=== PATIENT | male | born 1995 | race Caucasian/White ===

== ENCOUNTER 2020-01-11 09:38 | Emergency (ER) | payer BC, SELFPAY ==
--- NOTE | 2020-01-11 10:01 | ED.EAR ---
HPI - Ear Problem General Chief complaint: Ear Stated complaint: ear pain Source: patient and RN notes reviewed Mode of arrival: ambulatory Limitations: no limitations History of Present Illness HPI Narrative: The patient, previously mostly healthy, presents with ear discomfort. Patient states he has half week history of decreased hearing bilaterally, more in the right. This is associated with some mild tenderness; symptoms are mild, unrelieved with OTC preparations like peroxide and syringe. No fever, URI?sinusitis, loss of taste or smell, discharge, swimming, vertigo Related Data Allergies Allergy/AdvReac Type Severity Reaction Status Date / Time No Known Allergies Allergy Verified 01/11/20 10:05 Review of Systems Review of Systems: Narrative: The patient has been informed that they may have pre-hypertension or Hypertension based on a BP reading in the department. I recommend that the patient call the primary care provider listed on their discharge instructions or a physician of their choice this week to arrange follow up for further evaluation of possible pre-hypertension or Hypertension General/Constitutional: No weight loss,fever Eyes: N0: Redness,discharge Ears/Nose/Throat: No: Epistaxis,ear discharge Respiratory: Denies: Hemoptysis Gastrointestinal: No Vomiting, Bleeding-rectal Skin: No Lumps, eruption Neurologic: No Focal Weakness,Sz Hematologic: Denies: Petechiae/Purpura Psychiatric: No: Suicida ideationl All Other Systems: Reviewed and Negative PMFSH Comments At time of signature, agree with nursing past medical, surgical, social and family history. There is no relevant family history pertinent to the presenting complaint Exam Narrative: Exam Narrative: General Appearance: Well appearing, Conjunctiva clear Ears: Bilateral ceruminosis of EACs, left TM and auditory canal normal, mild right EAC edema and [fungal? ] debris Nose: Normal nose, Nares clear Mouth/Throat: Normal appearing, Normal lips Neck: Supple, No adenopathy Respiratory: Airway patent, No respiratory distress Skin: Warm, Dry Neurological: A&O x3, CN II-X intact Psychiatric: Normal mood, Normal affect Course Vital Signs Vital signs: Vital Signs Temperature 97.8 F 01/11/20 10:06 Pulse Rate 96 01/11/20 10:06 Respiratory Rate 20 01/11/20 10:06 Blood Pressure 149/81 H 01/11/20 10:06 Pulse Oximetry 100 01/11/20 10:06 Temperature 97.8 F 01/11/20 10:06 Pulse Rate 96 01/11/20 10:06 Respiratory Rate 20 01/11/20 10:06 Blood Pressure 149/81 H 01/11/20 10:06 Pulse Oximetry 100 01/11/20 10:06 Procedures Ear Wax Removal Both Ears: Cerumenolytic Used: other (peroxide) Results: Re-examined: cerumen removed completely TM Examination: TM(s) erythematous Ear Canal Exam: atraumatic Patient Tolerated Procedure: well Complications: no problems Medical Decision Making Vital Signs Vital Signs: Vital Signs Temperature 97.8 F 01/11/20 10:06 Pulse Rate 96 01/11/20 10:06 Respiratory Rate 20 01/11/20 10:06 Blood Pressure 149/81 H 01/11/20 10:06 Pulse Oximetry 100 01/11/20 10:06 Temperature 97.8 F 01/11/20 10:06 Pulse Rate 96 01/11/20 10:06 Respiratory Rate 20 01/11/20 10:06 Blood Pressure 149/81 H 01/11/20 10:06 Pulse Oximetry 100 01/11/20 10:06 Discharge Plan Discharge Clinical Impression: Otitis externa Qualifiers: Otitis externa type: unspecified type Chronicity: acute Laterality: right Qualified Code(s): H60.501 - Unspecified acute noninfective otitis externa, right ear Patient Disposition: Home, Self-Care Condition: Improved Instructions: Otitis Externa (ED) Additional Instructions: See ear doctor if not better, follow earwax instructions Prescriptions: New acetic acid 2 % solution 3 drop EACH EAR TID Qty: 15 RF: 0 [id number]-IW 3.5-10,000-1 mg/mL-unit/mL-% solution 4 drop RIG
[2020-01-11 10:06] VITALS: BP 149/81; PULSE 96; RESP 20; TEMP 36.6; O2SAT 100
== END 2020-01-11 11:00 | disposition home or self-care (01) ==
PROVIDERS: Emergency Provider Emergency Medicine
DX: H60.501 Unspecified acute noninfective otitis externa, right ear (principal)
CPT/HCPCS: 99213; A9270; G0463